=== PATIENT | female | born 1985 | race American Indian/Alaskan Native ===

== ENCOUNTER 2016-10-21 23:31 | Emergency (ER) | payer SELFPAY ==
--- NOTE | 2016-10-21 23:55 | EDM.PDOC ---
ED HPI Behavioral Health - General Chief Complaint: Behavioral/Psych Stated Complaint: ANXIETY Time Seen by Provider: 10/21/16 23:50 Source of Information: Reports: Patient, Family (mom) Exam Limitations: Reports: No limitations - History of Present Illness INITIAL COMMENTS - FREE TEXT/NARRATIVE: 3 yo [place] Female comes in with Mother c/o Anxiety. Pt. admits to long history of anxiety and f/u at the [facility] [place]. Pt. admits to not taking her xanax. Pt. admits to recent binge drinking of alcohol. Pt. mother states her daughter is in a bad relationship and has appt. with her behavioral health specialist on Thu. Onset of Symptoms: Reports: today Symptom Onset Date: 10/21/16 Symptom Onset Time: 16:52 Duration of Symptoms: Reports: Hour(s):, Intermittent, Waxing/waning Severity: mild Context, Behavioral Health: Reports: family dynamics Associated Symptoms: Reports: anxiety - Related Data Allergies Allergy/AdvReac Type Severity Reaction Status Date / Time No Known Allergies Allergy Verified 10/21/16 23:36 Home Medications: Home Meds . 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 History: Reports: None Neurological History: Reports: None Psychiatric History: Reports: Anxiety, Depression, Panic attack, Suicidal ideation Endocrine/Metabolic History: Reports: None Hematologic History: Reports: None Immunologic History: Reports: None Oncologic (Cancer) History: Reports: None Dermatologic History: Reports: None Social & Family History - Tobacco Use Smoking Status *Q: Never Smoker Years of Tobacco use: 5 Packs/Tins Daily: 1 Used Tobacco, but Quit: Yes Month Tobacco Last Used: 2013 Second Hand Smoke Exposure: No - Caffeine Use Caffeine Use: Reports: Soda - Alcohol Use Days Per Week of Alcohol Use: 2 Number of Drinks Per Day: 12 Total Drinks Per Week: 24 - Recreational Drug Use Recreational Drug Use: No - Living Situation & Occupation Living situation: Reports: with family ED ROS GENERAL - Review of Systems Review Of Systems: See Below Constitutional: Reports: no symptoms HEENT: Reports: No symptoms Respiratory: Reports: No Symptoms Cardiovascular: Reports: No symptoms Endocrine: Reports: no symptoms GI/Abdominal: Reports: No symptoms : Reports: no symptoms Musculoskeletal: Reports: no symptoms Skin: Reports: no symptoms Neurological: Reports: No Symptoms Psychiatric: Reports: Anxiety Hematologic/Lymphatic: Reports: no symptoms Immunologic: Reports: no symptoms ED EXAM, BEHAVIORAL HEALTH - Physical Exam Exam: See Below Exam Limited By: No limitations General Appearance: alert, WD/WN, no apparent distress, anxious Eye Exam: bilateral eye: PERRL Ears: normal external exam Nose: normal inspection Throat/Mouth: Normal inspection Head: atraumatic Neck: normal inspection Respiratory/Chest: no respiratory distress, lungs clear Cardiovascular: normal peripheral pulses, regular rate, rhythm GI/Abdominal: normal bowel sounds, soft Back Exam: normal inspection Extremities: normal inspection, normal range of motion Neurological: alert, normal mood/affect, CN II-XII intact Psychiatric: alert, oriented, other (anxiety) Skin Exam: Warm COURSE, BEHAVIORAL HEALTH COMP - Course Vital Signs: Last Vital Signs Temp 36.4 C 10/21/16 23:36 Pulse 87 10/21/16 23:36 Resp 20 10/21/16 23:36 BP 130/88 10/21/16 23:36 Pulse Ox 98 10/21/16 23:36 Departure - Departure Time of Disposition: 23:54 (Patient and Mom left AMA when I advised that we would first need lab work.) Disposition: Against Medical Advice 07 Condition: good Clinical Impression: Anxiety Forms: ED Department Discharge Additional Instructions: Stop All Alcohol use [facility]
== END 2016-10-21 23:50 | disposition left against medical advice (07) ==
LOC: DL.ED 23:31
CPT/HCPCS: 99282; 99283

== ENCOUNTER 2017-01-20 02:33 | Emergency (ER) | payer OTHER ==
[2017-01-20 02:45] VITALS: BP 105/62
[2017-01-20 03:06] LABS: CHLORIDE,CL 107 mmol/L (101-111); SODIUM,NA 146 mmol/L (135-145)
[2017-01-20 03:08] LABS: ACETAMINOPHEN < 10.0
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
== END 2017-01-20 03:20 | disposition left against medical advice (07) ==
LOC: DL.ED 02:33
DX: F10.129 Alcohol abuse with intoxication, unspecified (principal); S80.211A Abrasion, right knee, initial encounter; S80.811A Abrasion, right lower leg, initial encounter; F41.9 Anxiety disorder, unspecified; F32.9 Major depressive disorder, single episode, unspecified; Y90.8 Blood alcohol level of 240 mg/100 ml or more; Z87.891 Personal history of nicotine dependence; X58.XXXA Exposure to other specified factors, initial encounter
CPT/HCPCS: 36415; 80053; 80305; 81001; 81025; 85025; 99282; 99285; G0480

== ENCOUNTER 2017-01-23 16:57 | Emergency (ER) | payer SELFPAY ==
[2017-01-23 17:04] VITALS: BP 136/82
[2017-01-23] MEDS ORDERED: cefTRIAXone 250 MG, Lidocaine 1% 0.9 ML IM ONE ×2 (17:44)
[2017-01-23] MEDS ORDERED: Azithromycin 250 MG Tab PO ONE (17:44)
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
[2017-01-23] MEDS ORDERED: LORazepam 1 MG Tab PO ONE (18:28)
== END 2017-01-23 18:47 | disposition home or self-care (01) ==
LOC: DL.ED 16:57
DX: T74.21XA Adult sexual abuse, confirmed, initial encounter (principal); F41.9 Anxiety disorder, unspecified; F32.9 Major depressive disorder, single episode, unspecified; Z87.891 Personal history of nicotine dependence; Y07.9 Unspecified perpetrator of maltreatment and neglect; Y04.8XXA Assault by other bodily force, initial encounter
CPT/HCPCS: 96372; 99284; A9270; J0696

== ENCOUNTER 2020-05-06 22:12 | Emergency (ER) | payer BC, OTHER ==
[2020-05-06 23:08] LABS: ANION GAP 13.5 mEq/L (7-13); CHLORIDE,CL 102 mmol/L (98-107); SODIUM,NA 140 mmol/L (136-145)
[2020-05-06] MEDS ORDERED: Acetaminophen 325 MG Tab PO ONE (23:10)
[2020-05-06] MEDS ORDERED: Benzonatate 100 MG Cap PO ONE (23:11)
[2020-05-06 23:34] VITALS: BP 138/90; PULSE 99
--- NOTE | 2020-05-07 05:06 | EDM.PDOC ---
ED HPI GENERAL MEDICAL PROBLEM - General Chief Complaint: Respiratory Problem Stated Complaint: CHEST CONGESTION, BODY ACHES, SINUS Time Seen by Provider: 05/06/20 22:20 Source of Information: Reports: Patient History Limitations: Reports: No Limitations - History of Present Illness INITIAL COMMENTS - FREE TEXT/NARRATIVE: ED with c/o cough SOB, body aches chills with loss of smell starting today. No known COVID exposure. No vomiting or diarrhea. Chest Pain Score (Numeric/FACES): 8 - Related Data Allergies Allergy/AdvReac Type Severity Reaction Status Date / Time No Known Allergies Allergy Verified 05/06/20 22:29 Home Meds: Home Meds . 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: Musculoskeletal History: Reports: None Neurological History: Reports: None Psychiatric History: Reports: Anxiety, Depression, Panic Attack, Suicidal Ideation Endocrine/Metabolic History: Reports: None Hematologic History: Reports: None Immunologic History: Reports: None Oncologic (Cancer) History: Reports: None Dermatologic History: Reports: None - Infectious Disease History Infectious Disease History: Reports: Chicken Pox - Past Surgical History HEENT Surgical History: Reports: Tonsillectomy Social & Family History - Family History Family Medical History: Noncontributory - Tobacco Use Smoking Status *Q: Never Smoker Second Hand Smoke Exposure: No - Caffeine Use Caffeine Use: Reports: Energy Drinks Caffeine Use Comment: unable to obtain - Recreational Drug Use Recreational Drug Use: No - Living Situation & Occupation Living situation: Reports: with Family ED ROS GENERAL - Review of Systems Review Of Systems: Comprehensive ROS is negative, except as noted in HPI. ED EXAM, GENERAL - Physical Exam Exam: See Below Exam Limited By: No Limitations General Appearance: Alert, Anxious, Mild Distress Eye Exam: Bilateral Eye: EOMI Ears: Normal External Exam, Hearing Grossly Normal, Normal TMs Nose: Normal Inspection Throat/Mouth: Normal Inspection Head: Atraumatic, Normocephalic Neck: Normal Inspection Respiratory/Chest: No Respiratory Distress, Lungs Clear, Normal Breath Sounds Cardiovascular: Normal Peripheral Pulses, Regular Rate, Rhythm GI/Abdominal: Normal Bowel Sounds, Soft, Non-Tender Back Exam: Normal Inspection, Full Range of Motion Extremities: Normal Inspection, Normal Range of Motion Psychiatric: Anxious Skin Exam: Warm, Dry, Intact, Normal Color Course - Vital Signs Last Recorded V/S: Last Vital Signs Temp 98.2 F 05/06/20 22:47 Pulse 77 05/06/20 22:47 Resp 18 05/06/20 22:47 BP 124/92 H 05/06/20 22:47 Pulse Ox 100 05/06/20 22:47 - Orders/Labs/Meds Orders: Active Orders 24 hr Category Date Time Status D-DIMER QUANTITATIVE [COAG] Stat Lab 05/06/20 22:38 Received INFLUENZA A+B AG SCREEN [RM] Stat Lab 05/06/20 22:39 Ordered LACTIC ACID [CHEM] Stat Lab 05/06/20 22:38 Received Benzonatate [Tessalon Perles] Med 05/06/20 23:11 Once 200 mg PO ONETIME ONE Isolation [COMM] Routine Oth 05/06/20 22:19 Active Medication Orders Benzonatate (Tessalon Perles) 200 mg PO ONETIME ONE Stop: 05/06/20 23:12 Labs: Laboratory Tests 05/06/20 05/06/20 05/06/20 Range/Units 22:36 22:38 22:38 WBC 6.2 (5.0-10.0) 10^3/uL RBC 4.00 L (4.2-5.4) 10^6/uL Hgb 13.0 (12.0-16.0) g/dL Hct 37.6 (37.0-47.0) % MCV 94.0 (80-100) fL MCH 32.5 (27.0-34.0) pg MCHC 34.6 (33.0-35.0) g/dL Plt Count 248 (150-450) 10^3/uL Neut % (Auto) 56.7 (42.2-75.2) % Lymph % (Auto) 25.0 (20.5-50.1) % Mcleod % (Auto) 16.4 H (2-8) % Eos % (Auto) 1.4 (1.0-3.0) % Baso % (Auto) 0.5 (0.0-1.0) % Sodium 140 (136-145) mmol/L Potassium 3.5 (3.5-5.1) mmol/L Chloride 102 (98-107) mmol/L Carbon Dioxide 28 (21-32) mmol/L Anion Gap 13.5 H (7-13) mEq/L BUN 10 (7-18) mg/dL Creatinine 0.88 (0.55-1.02) mg/dL Est Cr Clr Drug Dosing 88.42 mL/min Estimated GFR (MDRD) > 60 BUN/Creatinine Ratio 11.4 (No establ ref range) Glucose 95 (74-99) mg/dL Calcium 8.2 L (8.5-10.1) mg/dL Total Bilirubin 0.4 (0.2-1.0) mg/dL AST 118 H (15-37) U/L ALT 146 H (14-59) U/L Alkaline Phosphatase 118 H (46-116) U/L C-Reactive Protein < 0.2 (0.0-0.9) mg/dL Total Protein 7.0 (6.4-8.2) g/dL Albumin 3.6 (3.4-5.0) g/dL Globulin 3.4 Albumin/Globulin Ratio 1.1 SARS CoV-2 RNA Rapid SONNY Positive H (NEGATIVE) Meds: Medications Generic Name Dose Route Start Last Admin Trade Name Freq PRN Reason Stop Dose Admin Benzonatate 200 mg 05/06/20 23:11 Tessalon Perles PO 05/06/20 23:12 ONETIME ONE Discontinued Medications Generic Name Dose Route Start Last Admin Trade Name Freq PRN Reason Stop Dose Admin Acetaminophen 650 mg 05/06/20 23:10 Tylenol PO 05/06/20 23:11 NOW ONE Departure - Departure Time of Disposition: 23:12 Disposition: Home, Self-Care 01 Condition: Good Clinical Impression: COVID-19 - Discharge Information *PRESCRIPTION DRUG MONITORING PROGRAM REVIEWED*: No *COPY OF PRESCRIPTION DRUG MONITORING REPORT IN PATIENT MIKE: No Instructions: COVID-19, Prevent the Spread of COVID-19 if You Are Sick - [facility] Additional Instructions: tessalon 200mg one every 8 hours as needed for cough isolate, quarantine increase fluids humidifier in room some light activity at least every hour while awake tylenol 650mg every 4 hours as needed for fever/ discomfort Over counter cough cold medications per label instruction as needed for cough congestion urgent follow up repeated vomiting and not tolerating or keeping down liquids, severe difficulty breathing Sepsis Event Note (ED) - Evaluation Sepsis Screening Result: No Definite Risk - Focused Exam Vital Signs: Vital Signs Temp Pulse Resp BP Pulse Ox 05/06/20 22:47 98.2 F 77 18 124/92 H 100 05/06/20 22:17 98.1 F 87 20 115/100 H 99 - My Orders Last 24 Hours: My Active Orders 05/06/20 22:19 Isolation [COMM] Routine 05/06/20 22:38 D-DIMER QUANTITATIVE [COAG] Stat LACTIC ACID [CHEM] Stat 05/06/20 22:39 INFLUENZA A+B AG SCREEN [RM] Stat 05/06/20 23:11 Benzonatate [Tessalon Perles] 200 mg PO ONETIME ONE - Assessment/Plan Last 24 Hours: My Active Orders 05/06/20 22:19 Isolation [COMM] Routine 05/06/20 22:38 D-DIMER QUANTITATIVE [COAG] Stat LACTIC ACID [CHEM] Stat 05/06/20 22:39 INFLUENZA A+B AG SCREEN [RM] Stat 05/06/20 23:11 Benzonatate [Tessalon Perles] 200 mg PO ONETIME ONE
== END 2020-05-06 23:40 | disposition home or self-care (01) ==
LOC: DL.ED 22:12
DX: U07.1 COVID-19 (principal)
CPT/HCPCS: 36415; 80053; 83605; 85025; 85379; 86140; 87635; 87804; 99283; A9270; U0002

== ENCOUNTER 2023-01-18 11:06 | Emergency (ER) | payer BC, OTHER ==
[2023-01-18 11:22] LABS: APPEARANCE,URINE SLIGHTLY CLOUDY (CLEAR); BILIRUBIN,URINE NEGATIVE (NEGATIVE); GLUCOSE,URINE 100 (NEGATIVE); KETONES,URINE TRACE (NEGATIVE); LEUKOCYTE ESTERASE,URINE LARGE (NEGATIVE); NITRITE,URINE POSITIVE (NEGATIVE); OCCULT BLOOD,URINE MODERATE (NEGATIVE); PROTEIN,URINE 100 (NEGATIVE)
[2023-01-18 11:25] LABS: COLOR,URINE ORANGE (YELLOW)
[2023-01-18 11:30] LABS: AMORPHOUS SEDIMENT,URINE FEW /HPF (NOT SEEN); BACTERIA,URINE MANY /HPF (0-FEW/HPF); EPITHELIAL CELLS,URINE MANY /HPF (NOT SEEN); MUCUS,URINE FEW /LPF (NOT SEEN); WBC,URINE SEMI-PACKED /HPF (0-5/HPF)
[2023-01-18] MEDS ORDERED: Phenazopyridine 95 MG Tab PO ONE (11:33)
[2023-01-18] MEDS ORDERED: Sodium Chloride 0.9% 10 ML Syringe FLUSH PRN (11:37)
[2023-01-18 11:53] LABS: BASOPHILS PERCENT AUTO 0.2 % (0.0-1.0); EOSINOPHILS PERCENT AUTO 2.3 % (1.0-3.0); HEMATOCRIT 42.1 % (37.0-47.0); HEMOGLOBIN 14.3 g/dL (12.0-16.0); MEAN CORPUSCULAR HEMOGLOBIN 31.5 pg (27.0-34.0); MEAN CORPUSCULAR VOLUME 92.7 fL (80-100); MONOCYTES PERCENT AUTO 8.1 % (2-8); NEUTROPHILS PERCENT AUTO 72.4 % (42.2-75.2); PLATELET COUNT,PLT 287 10^3/uL (150-450); RED BLOOD CELL COUNT 4.54 10^6/uL (4.2-5.4); WHITE BLOOD CELL COUNT,WBC 11.7 10^3/uL (5.0-10.0)
[2023-01-18 12:12] LABS: A/G RATIO 1.1; ALANINE AMINOTRANSFERASE,ALT 79 U/L (14-59); ALKALINE PHOSPHATASE 108 U/L (46-116); ANION GAP 12.9 mEq/L (7-13); ASPARTATE AMNIOTRANSFERASE,AST 34 U/L (15-37); BILIRUBIN TOTAL 0.7 mg/dL (0.2-1.0); BLOOD UREA NITROGEN,BUN 19 mg/dL (7-18); BUN/CREATININE RATIO 21.8 (No establ ref range); C-REACTIVE PROTEIN 0.4 mg/dL (0.0-0.9); CALCIUM 8.6 mg/dL (8.5-10.1); CARBON DIOXIDE,CO2 26 mmol/L (21-32); CHLORIDE,CL 102 mmol/L (98-107); CREATININE 0.87 mg/dL (0.55-1.02); ESTIMATED GFR 89 mL/min (>=60); GLUCOSE RANDOM 98 mg/dL (70-99); POTASSIUM,K 3.9 mmol/L (3.5-5.1); PROTEIN TOTAL,TP 7.6 g/dL (6.4-8.2); SODIUM,NA 137 mmol/L (136-145)
[2023-01-18 12:15] LABS: LACTIC ACID 0.9 mmol/L (0.4-2.0)
[2023-01-18 12:19] VITALS: BP 142/66; PULSE 66
[2023-01-18] MEDS ORDERED: cefTRIAXone 2 GM Vial IVPUSH ONE (12:21)
[2023-01-18] MEDS ORDERED: Take Home: Phenazopyridine 95 MG Tab, 4 Tab Pack PO ONE (12:23)
== END 2023-01-18 12:43 | disposition home or self-care (01) ==
LOC: DL.ED 11:06
DX: N30.01 Acute cystitis with hematuria (principal)
CPT/HCPCS: 36415; 80053; 81001; 83605; 85025; 86140; 87040; 87086; 87088; 87186; 96374; 99283; A9270; J0696; J3490